=== PATIENT | female | born 1960 | race Caucasian/White ===

== ENCOUNTER 2016-05-12 11:18 | Emergency (ER) | payer OTHER ==
[~2016-05-12] VITALS: Ht 170.2 cm; Wt 88.0 kg
[2016-05-12 11:24] VITALS: BP 154/76; PULSE 81; RESP 17; TEMP 97.8; O2SAT 97
[2016-05-12 11:35] VITALS: BP 157/80; PULSE 67; RESP 16; O2SAT 97
[2016-05-12] MEDS ORDERED: SIMV20TA PO (11:41)
[2016-05-12] MEDS ORDERED: SODIUM CHLOR 0.9% 1000 ML INJ 1,000 ML IV ONE (11:41)
[2016-05-12] MEDS ORDERED: BLOOD PRESSURE MED (11:41)
[2016-05-12] MEDS ORDERED: SODIUM CHLORIDE 0.9% FLUSH 5 ML FLUSH IVF PRN (11:45)
[2016-05-12] MEDS ORDERED: ONDANSETRON HCL 4 MG/2 ML VIAL IVP ONE (11:45)
[2016-05-12] MEDS ORDERED: MORPHINE SULFATE 4 MG/ML INJ IV ONE (11:45)
--- NOTE | 2016-05-12 11:54 | PD ---
HPI Chief Complaint: Abdominal Pain Time Seen by Provider: 11:40 Travel History International Travel<30 days: No Contact w/Intl Traveler<30days: No Traveled to known affect area: No History of Present Illness HPI 55 year-old female with a history of kidney stones and ovarian cysts presents to the emergency room for evaluation of abdominal pain, nausea, vomiting, flank pain, urgency, frequency, and dysuria since this morning. States she had an episode of the same symptoms 3 days ago that dissipated after one full day. She took ibuprofen and laxatives for her symptoms. She also applied a heating pad which seemed to relieve some of the symptoms. She reports one episode of bright red bloody stool 3 days ago but none since. Patient states she tried to avoid coming to the emergency room and was pleased that her symptoms went away but when they returned this morning, she was in too much pain. Pain is 9/10. It is localized to the right lower quadrant with radiation into the right flank. She last took 800 mg ibuprofen about 2 hours prior to arrival. Lying on her stomach and flexing the right lower extremity improves her symptoms. Denies fever, chills, dysuria, hematuria, hematemesis, constipation, or diarrhea. Pertinent surgical history includes section and renal stent placement in 1985. [place] kidney [place] was about [place] which time she required lithotripsy. PFSH Past Medical History Respiratory: Yes (COPD) ?: Not Social History Tobacco Use: No Allergies-Medications (Allergen,Severity, Reaction): Coded Allergies: No Known Allergies (Unverified , 05/12/16) Reported Meds & Prescriptions Reported Meds & Active Scripts Active Zofran (Ondansetron HCl) 4 Mg Tab 4 Mg PO Q6HR PRN Flomax (Tamsulosin HCl) 0.4 Mg Cap 0.4 Mg PO HS Lortab (Hydrocodone-Acetaminophen) 5-325 Mg Tab 1 Tab PO Q6H PRN Reported Simvastatin 20 Mg Tab 20 Mg PO DAILY [Blood Pressure Med] Review of Systems Except as stated in HPI: all other systems reviewed are Neg Physical Exam Narrative GENERAL: Well-developed, well-nourished female in no acute distress. Afebrile. Ambulatory. SKIN: Warm and dry. HEAD: Atraumatic. Normocephalic. EYES: Pupils equal and round. No scleral icterus. No injection or drainage. NECK: Trachea midline. No JVD. CARDIOVASCULAR: Regular rate and rhythm. No murmur appreciated. RESPIRATORY: No accessory muscle use. Clear to auscultation. Breath sounds equal bilaterally. GASTROINTESTINAL: Abdomen soft, nondistended. Mild tenderness to palpation of the right lower quadrant. No peritoneal signs. No rebound tenderness. Negative psoas and obturator signs. No significant CVA tenderness. NEUROLOGICAL: Awake and alert. No obvious cranial nerve deficits. Motor grossly within normal limits. Normal speech. PSYCHIATRIC: Appropriate mood and affect; insight and judgment normal. Data Data Last Documented VS Vital Signs Date Time Temp Pulse Resp B/P Pulse Ox O2 Delivery O2 Flow Rate FiO2 05/12/16 13:35 74 16 148/72 97 Room Air 05/12/16 11:24 97.8 Orders Complete Blood Count With Diff (05/12/16 11:41) Comprehensive Metabolic Panel (05/12/16 11:41) Urinalysis - C+S If Indicated (05/12/16 11:41) Ct Abd/Pel W/O Iv Contrast (05/12/16 11:41) Ecg Monitoring (05/12/16 11:41) Iv Access Insert/Monitor (05/12/16 11:41) Morphine Inj (Morphine Inj) (05/12/16 11:45) Ondansetron Inj (Zofran Inj) (05/12/16 11:45) Sodium Chloride 0.9% Flush (Ns Flush) (05/12/16 11:45) Sodium Chlor 0.9% 1000 Ml Inj (Ns 1000 M (05/12/16 11:41) Labs Laboratory Tests Test 05/12/16 11:55 White Blood Count 7.9 TH/MM3 Red Blood Count 4.70 MIL/MM3 Hemoglobin 13.9 GM/DL Hematocrit 40.4 % Mean Corpuscular Volume 86.0 FL Mean Corpuscular Hemoglobin 29.6 PG Mean Corpuscular Hemoglobin 34.4 % Concent Red Cell Distribution Width 13.2 % Platelet Count 167 TH/MM3 Mean Platelet Volume 10.4 FL Neutrophils (%) (Auto) 71.9 % Lymphocytes (%) (Auto) 18.0 % Monocytes (%) (Auto) 7.7 % Eosinophils (%) (Auto) 1.7 % Basophils (%) (Auto) 0.7 % Neutrophils # (Auto) 5.7 TH/MM3 Lymphocytes # (Auto) 1.4 TH/MM3 Monocytes # (Auto) 0.6 TH/MM3 Eosinophils # (Auto) 0.1 TH/MM3 Basophils # (Auto) 0.1 TH/MM3 CBC Comment DIFF FINAL Differential Comment Urine Color YELLOW Urine Turbidity CLEAR Urine pH 5.5 Urine Specific [place] 1.016 Urine Protein NEG mg/dL Urine Glucose (UA) NEG mg/dL Urine Ketones NEG mg/dL Urine Occult Blood MOD Urine Nitrite NEG Urine Bilirubin NEG Urine Urobilinogen LESS THAN 2.0 MG/DL Urine Leukocyte Esterase NEG Urine RBC 19 /hpf Urine WBC 4 /hpf Urine Squamous Epithelial 1 /hpf Cells Urine Bacteria RARE /hpf Urine Mucus FEW /lpf Microscopic Urinalysis Comment CULT NOT INDICATED Sodium Level 140 MEQ/L Potassium Level 4.1 MEQ/L Chloride Level 105 MEQ/L Carbon Dioxide Level 27.0 MEQ/L Anion Gap 8 MEQ/L Blood Urea Nitrogen 18 MG/DL Creatinine 0.90 MG/DL Estimat Glomerular Filtration 65 ML/MIN Rate Random Glucose 103 MG/DL Calcium Level 9.0 MG/DL Total Bilirubin 0.5 MG/DL Aspartate Amino Transf 17 U/L (AST/SGOT) Alanine Aminotransferase 25 U/L (ALT/SGPT) Alkaline Phosphatase 93 U/L Total Protein 7.0 GM/DL Albumin 4.1 GM/DL [facility] Medical Decision Making Medical Screen Exam Complete: Yes Emergency Medical Condition: Yes Medical Record Reviewed: Yes Differential Diagnosis Nephrolithiasis versus urinary tract infection versus pyelonephritis versus appendicitis less likely Narrative Course 55-year-old female with history of kidney stones and ovarian cysts presents to the emergency room for evaluation of right lower quadrant pain with radiation to the right flank for the past day. Patient had similar episode 3 days ago that improved. She has associated vomiting, dysuria, urgency, and frequency. Denies systemic signs of infection. Vital signs stable. Patient lying on her stomach and crying in pain. Abdominal exam is benign. No peritoneal signs. No significant CVA tenderness. IV access established and patient given 4 mg Zofran and morphine. Patient reports decrease in pain from 9/10-4/10 after medication. She appears much more comfortable. CBC, CMP are unremarkable. UA is indicative of kidney stones with moderate occult blood. No concern for infectious process at this time. CT shows moderate hydronephrosis secondary to right UVJ calculus measuring 5 mm. Patient was informed of results. She is stable for discharge. She'll be discharged with prescriptions for Flomax, Lortab, and Zofran. Told to follow up with the urologist or return to the emergency room for worsening symptoms. She understands and agrees to plan. Diagnosis Primary Impression: Calculus of right kidney Referrals: Primary Care Physician Urologist Patient Instructions: General Instructions, Kidney Stones (ED) Departure Forms: Tests/Procedures, Work Release Enter return to work date: May 19, 2016 Additional Instructions: Rest and drink plenty of fluids. Take Lortab as directed, as needed for pain. Do not drink alcohol or drive while taking this medication. You can take ibuprofen with food as directed in addition to Lortab, as needed for pain. Take Flomax as directed. Take Zofran as directed, as needed for nausea. Follow-up with a urologist for the 5 mm stone in your right kidney. Return to the emergency room for worsening symptoms. Med/Other Pt SpecificInfo: Prescription(s) given Scripts Ondansetron (Zofran)4 Mg Tab4 Mg PO Q6HR PRN (NAUSEA OR VOMITING) #15 TAB Ref 0 Prov:Natalio Messina MD 05/12/16 Tamsulosin (Flomax)0.4 Mg Cap0.4 Mg PO HS #10 CAP Ref 0 Prov:Natalio Messina MD 05/12/16 Hydrocodone-Acetaminophen (Lortab)5-325 Mg Tab1 Tab PO Q6H PRN (PAIN) #15 TAB Ref 0 Prov:Natalio Messina MD 05/12/16 Disposition: 01 DISCHARGE HOME Condition: Stable Patria Mota May 12, 2016 11:54
[2016-05-12 12:21] LABS: AUTOMATED NEUTROPHIL # 5.7 TH/MM3 (1.8-7.7); BASOPHIL # 0.1 TH/MM3 (0-0.2); BASOPHIL % 0.7 % (0.0-2.0); EOSINOPHIL # 0.1 TH/MM3 (0-0.4); EOSINOPHIL % 1.7 % (0.0-4.0); HEMATOCRIT 40.4 % (35.0-46.0); HEMO FLAGS DIFF FINAL; LYMPHOCYTE # 1.4 TH/MM3 (1.0-4.8); MEAN CORPUSCULAR HEMOGLOBIN 29.6 PG (27.0-34.0); MEAN CORPUSCULAR HGB CONC 34.4 % (32.0-36.0); MONO % 7.7 % (0.0-8.0); NEUT % 71.9 % (16.0-70.0); PLATELET COUNT 167 TH/MM3 (150-450); RED CELL DISTRIBUTION WIDTH 13.2 % (11.6-17.2); WHITE BLOOD COUNT 7.9 TH/MM3 (4.0-11.0)
[2016-05-12 12:22] LABS: BACTERIA, URINE RARE /hpf; BLOOD, URINE MOD (NEG); COMMENT (UR) CULT NOT INDICATED; CULTURE IF INDICATED CULT NOT INDICATED; GLUCOSE,URINE NEG (NEG); KETONE, URINE NEG (NEG); MUCUS URINE FEW /lpf (OCC); NITRITE,URINE NEG (NEG); PH, URINE 5.5 (5.0-8.5); SQUAMOUS EPITHELIAL CELL URINE 1 /hpf (0-5); URINE COLOR YELLOW (YELLW/STRAW)
[2016-05-12 12:45] LABS: ALT (GPT) 25 U/L (10-53); ANION GAP 8 MEQ/L (5-15); AST (GOT) 17 U/L (15-37); BLOOD UREA NITROGEN 18 MG/DL (7-18); CHLORIDE 105 MEQ/L (98-107); GLOMERULAR FILTRATION RATE 65 ML/MIN (>89); POTASSIUM 4.1 MEQ/L (3.5-5.1); SODIUM (NA) 140 MEQ/L (136-145)
[2016-05-12 12:48] LABS: ALKALINE PHOSPHATASE 93 U/L (45-117); TOTAL BILIRUBIN ADULT 0.5 MG/DL (0.2-1.0)
[2016-05-12 13:35] VITALS: BP 148/72; PULSE 74; RESP 16; O2SAT 97
--- NOTE | 2016-05-12 14:05 | RADRPT ---
EXAM DATE/TIME: 05/12/2016 13:37 [place] COMPARISON: No previous studies available for comparison. INDICATIONS : Lower abdominal pain, vomiting. ORAL CONTRAST: No oral contrast ingested. RADIATION DOSE: 15.47 CTDIvol (mGy) MEDICAL HISTORY : Renal calculi. Chronic obstructive pulmonary disease. Hypertension. SURGICAL HISTORY : section. ENCOUNTER: Initial ACUITY: 3 days PAIN SCALE: 7/10 LOCATION: Bilateral lower quadrant TECHNIQUE: Volumetric scanning of the abdomen and pelvis was performed. Using automated exposure control and ad justment of the mA and/or kV according to patient size, radiation dose was kept as low as reasonably achievable to obtain optimal diagnostic quality images. FINDINGS: LOWER LUNGS: The visualized lower lungs are clear. LIVER: Homogeneous density without lesion. There is no dilation of the biliary tree. No calcified gallston es. SPLEEN: Normal size without lesion. PANCREAS: Within normal limits. KIDNEYS: Normal in size and shape. There is no mass, stone, or hydronephrosis on the left. Moderate hydroneph rosis of the right kidney and hydroureter leading to a right UPJ calculus measuring 5 mm. Punctate no nobstructing right-sided renal calculi measuring 2-3 mm. Inflammatory changes adjacent to the right k idney. Subcentimeter left renal low-density. ADRENAL GLANDS: Within normal limits. VASCULAR: There is no aortic aneurysm. BOWEL/MESENTERY: The stomach, small bowel, and colon demonstrate no acute abnormality. There is no free intraperitone al air or fluid. ABDOMINAL WALL: Within normal limits. RETROPERITONEUM: There is no lymphadenopathy. BLADDER: No wall thickening or mass. REPRODUCTIVE: Within normal limits. INGUINAL: There is no lymphadenopathy or hernia. MUSCULOSKELETAL: Within normal limits for patient age. CONCLUSION: 1. Moderate hydronephrosis the right kidney secondary to a right UVJ calculus measuring 5 mm. 2. Several punctate nonobstructing right-sided renal calculi. 3. Left renal cyst. Shiv Goldsmith MD on May 12, 2016 at 14:00 Board Certified Radiologist. This report was verified electronically.
[2016-05-12] MEDS ORDERED: TAMS5CAP PO (14:13)
[2016-05-12] MEDS ORDERED: ZOFR4TAB PO (14:13)
[2016-05-12] MEDS ORDERED: HYDR-3533 PO (14:13)
== END 2016-05-12 14:36 | disposition home or self-care (01) ==
LOC: NEPA 11:18
DX: N20.0 Calculus of kidney (principal)
CPT/HCPCS: 74176; 80053; 81001; 85025; 96361; 96374; 96375; 99284; J2270; J2405; J7030